=== PATIENT | female | born 2000 | race Caucasian/White ===

== ENCOUNTER 2018-08-31 19:40 | Emergency (ER) | payer OTHER ==
[~2018-08-31] VITALS: Ht 170.2 cm; Wt 72.7 kg
[2018-08-31 19:41] VITALS: BP 134/80
[2018-08-31] MEDS ORDERED: IBUP-1114 PO (19:53)
[2018-08-31] MEDS ORDERED: KETOROLAC 30 MG/ML VIAL (J1885) IV ONE (20:45)
[2018-08-31 20:56] LABS: BASO % 0.3 % (0.0-1.0); EOS # 0.1 10^3/uL (0.0-0.50); EOS % 0.8 % (0.0-3.0); HEMATOCRIT 44.8 % (36.0-47.0); HEMOGLOBIN 15.1 g/dl (12.0-15.5); LYMPH % 10.2 % (24.0-44.0); MEAN CORPUSCULAR HEMOGLOBIN 30.4 pg (27.0-33.0); MEAN CORPUSCULAR HGB CONC 33.7 g/dl (32.0-36.5); MEAN CORPUSCULAR VOLUME 90.3 fl (80.0-96.0); MONO # 0.4 10^3/uL (0.0-0.8); MONO % 4.6 % (0.0-5.0); NEUTROPHILS % 83.8 % (36.0-66.0); PLATELET COUNT, AUTOMATED 233 10^3/uL (150-450); RED BLOOD COUNT 4.96 10^6/uL (4.00-5.40); WHITE BLOOD COUNT 9.6 10^3/uL (4.0-10.0)
[2018-08-31 21:15] LABS: HCG, SERUM QUALITATIVE NEGATIVE (NEGATIVE)
[2018-08-31 21:23] LABS: ALBUMIN 4.2 GM/DL (3.2-5.2); ALT/SGPT 23 U/L (12-78); BILIRUBIN,DIRECT 0.1 MG/DL (0.0-0.2); BILIRUBIN,TOTAL 0.3 MG/DL (0.2-1.0); BLOOD UREA NITROGEN 13 MG/DL (7-18); CALCIUM LEVEL 9.4 MG/DL (8.5-10.1); CARBON DIOXIDE LEVEL 27 MEQ/L (21-32); CHLORIDE LEVEL 106 MEQ/L (98-107); GLUCOSE, FASTING 102 MG/DL (70-100); POTASSIUM SERUM 4.4 MEQ/L (3.5-5.1); SODIUM LEVEL 140 MEQ/L (136-145); TOTAL PROTEIN 7.2 GM/DL (6.4-8.2)
--- NOTE | 2018-08-31 23:20 | REPVR ---
EXAM: US Pelvis Complete, Transabdominal and US Pelvis, Transvaginal EXAM DATE/TIME: 08/31/2018 10:34 PM CLINICAL HISTORY: 18 years old, female; Pain; Pelvic pain TECHNIQUE: Real-time transabdominal and transvaginal pelvic ultrasound (complete) with image documentation. Transvaginal imaging was used for better evaluation of the endometrium and adnexa. COMPARISON: No relevant prior studies available. FINDINGS: Uterus/cervix: Uterus measures 5.1 x 2.6 x 4.0 cm. Endometrial stripe measures 7.7 in thickness. Anteverted uterus. Right adnexa: Right ovary measures 3.6 x 1.3 x 3.0 cm. Simple cyst in the right ovary measuring 1.1 x 1.7 cm. Normal vascular flow. No masses. Left adnexa: Left ovary measures 4.1 x 1.9 x 1.9 cm. Normal vascular flow. No masses. Free fluid: Small fluid in the cul-de-sac and right adnexal region. Bladder: Normal. IMPRESSION: Unremarkable uterus. Simple cyst in the right ovary. No followup is necessary. Small free fluid. Electronically signed by: Juana Mariano On 08/31/2018 23:20:32 PM
== END 2018-09-01 00:40 | disposition home or self-care (01) ==
LOC: M ED 19:40
DX: N94.6 Dysmenorrhea, unspecified (principal); N83.291 Other ovarian cyst, right side; Z80.49 Family history of malignant neoplasm of other genital organs; Z72.0 Tobacco use
CPT/HCPCS: 36415; 76830; 76856; 80048; 80076; 81001; 84703; 85025; 87210; 93976; 96374; 99284; J1885

== ENCOUNTER 2020-11-13 13:09 | Emergency (ER) | payer OTHER ==
[~2020-11-13] VITALS: Ht 172.7 cm; Wt 72.7 kg
[~2020-11-13 13:09] MED LIST: IBUP-1114 PO
[2020-11-13] MEDS ORDERED: MORPHINE 4 MG/ML 1ML VIAL/SYRINGE (J2270) IV ONE (13:50)
[2020-11-13] MEDS ORDERED: ONDANSETRON 4MG/2ML VIAL IV ONE (13:50)
[2020-11-13 13:51] LABS: BASO % 0.2 % (0.0-1.0); EOS # 0.1 10^3/uL (0.0-0.5); HEMATOCRIT 43.5 % (36.0-47.0); HEMOGLOBIN 14.9 g/dl (12.0-15.5); LYMPH # 1.6 10^3/uL (1.5-5.0); LYMPH % 11.6 % (24.0-44.0); MEAN CORPUSCULAR HEMOGLOBIN 30.7 pg (27.0-33.0); MEAN CORPUSCULAR HGB CONC 34.3 g/dl (32.0-36.5); MEAN CORPUSCULAR VOLUME 89.7 fl (80.0-96.0); MONO # 0.6 10^3/uL (0.0-0.8); MONO % 4.3 % (2.0-8.0); NEUTROPHILS # 11.3 10^3/uL (1.5-8.5); NEUTROPHILS % 82.5 % (36.0-66.0); PLATELET COUNT, AUTOMATED 275 10^3/uL (150-450); RED BLOOD COUNT 4.85 10^6/uL (4.00-5.40); WHITE BLOOD COUNT 13.7 10^3/uL (4.0-10.0)
[2020-11-13] MEDS ORDERED: NS 1,000 ML IV ONE (13:55)
[2020-11-13 14:23] LABS: ALBUMIN 3.9 GM/DL (3.2-5.2); ALT/SGPT 20 U/L (12-78); BILIRUBIN,DIRECT 0.2 MG/DL (0.0-0.2); BILIRUBIN,TOTAL 0.7 MG/DL (0.2-1.0); LIPASE 78 U/L (73-393); TOTAL PROTEIN 6.7 GM/DL (6.4-8.2)
[2020-11-13 14:33] LABS: HCG, SERUM QUALITATIVE NEGATIVE (NEGATIVE)
[2020-11-13] MEDS ORDERED: ISOVUE-370 76% 100ML VIAL As Ordered ONE (14:39)
--- NOTE | 2020-11-13 15:15 | REP ---
INDICATION: severe abdominal pain RLQ/ LLQ. COMPARISON: None. TECHNIQUE: Helical scanning was acquired and 4 mm axial images are re-formatted. Coronal and sagittal MPR images were generated and reviewed. The contrast enhancement dose is 100 mL of intravenous Isovue 370. FINDINGS: Preliminary digital wharfinger chief radiograph is unremarkable. Normal bowel gas pattern. The lung bases are clear on axial CT images. The liver and the spleen are normal in size homogeneous in texture. Adrenal glands are unremarkable. No abnormality is noted in the pancreas or the gallbladder. The kidneys enhance symmetrically and are morphologically intact. No retroperitoneal mass or adenopathy is seen. Small and large intestinal bowel loops are normal in the abdomen and pelvis. No evidence of obstruction. Uterus and ovaries are unremarkable. Urinary bladder appears intact. No abdominal wall defect is seen. A normal appendix is noted in the right lower quadrant. No abnormal fluid collection or free air is seen. No bony destructive lesion is appreciated. IMPRESSION: Negative CT study abdomen and pelvis with IV contrast. No acute abdominal or pelvic abnormality. <Electronically signed by Kingsley Perales > 11/13/20 [id number]
[2020-11-13] MEDS ORDERED: KETOROLAC 30 MG/ML 1ML VIAL As Ordered ONE (16:28)
[2020-11-13] MEDS ORDERED: KETOROLAC 30 MG/ML 1ML VIAL IV ONE (16:30)
[2020-11-13] MEDS ORDERED: KETO10TAB PO (16:58)
[2020-11-13 17:11] VITALS: BP 100/57
[2020-11-13 17:25] LABS: CHLAMYDIA DNA AMPLIFICATION NEGATIVE (NEGATIVE); GC DNA AMPLIFICATION NEGATIVE (NEGATIVE)
== END 2020-11-13 17:21 | disposition home or self-care (01) ==
LOC: M ED 13:09
DX: N94.6 Dysmenorrhea, unspecified (principal)
CPT/HCPCS: 74177; 80047; 80076; 81001; 83690; 84703; 85025; 87661; 96361; 96374; 96375; 99284; J1885; J2270; J2405; Q9967